=== PATIENT | male | born 1995 | race Caucasian/White ===

== ENCOUNTER 2017-10-04 19:23 | Emergency (ER) | payer BC ==
[2017-10-04] MEDS: LORAZEPAM 1 MG TAB PO (20:59)
== END 2017-10-04 21:40 | disposition home or self-care (01) ==
LOC: FTE 19:23
DX: M25.511 Pain in right shoulder (principal); Z76.0 Encounter for issue of repeat prescription
CPT/HCPCS: 99283; Z7502